=== PATIENT | female | born 1950 | race Two or more races ===

== ENCOUNTER 2023-04-14 12:18 | Emergency (ER) | payer OTHER ==
[~2023-04-14] VITALS: Ht 160 cm; Wt 49.4 kg
[~2023-04-14 12:18] MED LIST: CLONAZEPAM2 MG; FIORICET 50-301 EACH; [UNRECOGNIZED DRUG - OTHER]
[2023-04-14] MEDS ORDERED: GRALISE600 MG (12:56)
[2023-04-14] MEDS ORDERED: CRESTOR40 MG PO (12:56)
[2023-04-14] MEDS ORDERED: SYNTHROID75 MCG PO (12:56)
[2023-04-14] MEDS ORDERED: CLONAZEPAM2 M1 PO (12:57)
[2023-04-14 13:52] LABS: HEMATOCRIT 35.6 % (36.0-45.00); HEMOGLOBIN 12.3 g/dL (12.0-15.00); MEAN CELL VOLUME 94.6 fL (80.00-100.00); MEAN CORPUSCULAR HEMOGLOBIN 32.7 pg (27.00-32.0); MEAN CORPUSCULAR HGB CONC 34.5 g/dl (32.0-36.0); PLATELET COUNT 247 K/uL (150-450); RED BLOOD COUNT 3.76 M/uL (4.00-6.00); RED CELL DISTRIBUTION WIDTH 13.1 % (11.5-14.5)
[2023-04-14 14:00] LABS: PH,URINE 6.5 (5.0-8.0); URINE APPEARANCE Clear; URINE BILIRRUBIN Negative (NEGATIVE); URINE BLOOD Negative; URINE COLOR Yellow; URINE GLUCOSE Negative (NEGATIVE); URINE LEUKOCYTE Negative; URINE NITRATE Negative; URINE PROTEIN 30 (NEGATIVE)
[2023-04-14 14:01] LABS: URINE BACTERIA 23.9 uL (0.0-1933); URINE EPITHELIAL CELLS 9.2 uL (0.0-38.8); URINE RBC 12.7 uL (0.0-20.8); URINE WBC 13.7 uL (0.0-23.2)
[2023-04-14 14:32] LABS: CALCIUM 8.9 mg/dL (8.5-10.1); CREATININE SERUM 0.75 mg/dL (0.55-1.02); GFR 75.54; POTASSIUM 3.19 mEq/L (3.5-5.1)
== END 2023-04-14 15:28 | disposition home or self-care (01) ==
LOC: ER 12:18
PROVIDERS: Emergency Medicine
DX: K52.9 Noninfective gastroenteritis and colitis, unspecified (principal); E78.00 Pure hypercholesterolemia, unspecified; E03.9 Hypothyroidism, unspecified
CPT/HCPCS: 36415; 96365; 96366; 99284; J7030